=== PATIENT | female | born 1960 | race Caucasian/White ===

== ENCOUNTER 2018-08-09 06:09 | Outpatient (CLI) | payer BC ==
[2018-08-09] VITALS (12 sets, daily range): BP systolic 106–135; BP diastolic 53–80
[~2018-08-09] VITALS: Ht 165.1 cm; Wt 90.3 kg
[2018-08-09 06:59] LABS: HEMOGLOBIN 15.3 g/dL (12.0-15.5); RED BLOOD COUNT 4.98 x10^6/uL (3.50-5.40); RED CELL DISTRIBUTION WIDTH 12.6 % (11.5-14.5); WHITE BLOOD COUNT 8.3 x10^3/uL (4.0-11.0)
[2018-08-09 07:08] LABS: PROTHROMBIN TIME PATIENT 12.7 SEC (11.7-14.0)
[2018-08-09] MEDS ORDERED: LIDOCAINE 1% PF 2 ML VIAL. ONE (07:09)
[2018-08-09] MEDS ORDERED: IODIXANOL 320 MG/ML 100 ML VIAL. ONE (07:09)
[2018-08-09] MEDS ORDERED: SPIR50TA4 PO (07:19)
[2018-08-09] MEDS ORDERED: ASPI-630 PO (07:19)
[2018-08-09 07:35] LABS: GFR 56.6; POTASSIUM 4.2 mmol/L (3.5-5.1)
[2018-08-09 07:40] LABS: ALBUMIN 4.1 g/dL (3.4-5.0); TOTAL BILIRUBIN 0.5 mg/dL (0.2-1.0); TOTAL PROTEIN 8.1 g/dL (6.4-8.2)
[2018-08-09 07:42] LABS: CHOLESTEROL/HDL RATIO 4.9
[2018-08-09] MEDS ORDERED: VERAPAMIL 5 MG/2 ML VIAL. ONE (07:44)
[2018-08-09] MEDS ORDERED: HEPARIN for IV BOLUS 10,000 UNIT/10 ML VIAL. ONE (07:44)
[2018-08-09] MEDS ORDERED: MIDAZOLAM HCL/PF 2 MG/2 ML VIAL. ONE ×2 (07:44→08:37)
[2018-08-09] MEDS ORDERED: fentaNYL PF VIAL 100 MCG/2 ML VIAL ONE ×2 (07:44→08:37)
[2018-08-09] MEDS ORDERED: NITROGLYCERIN 200 MCG/2 ML SYRINGE FOR CATH/VASC LAB. ONE ×3 (07:45→09:16)
--- NOTE | 2018-08-09 08:10 | PDOC ---
MODERATE SEDATION ASSESSMENT RISKS/ALTERNATIVES Risks/Alternatives Risks and alternatives of this type of sedation and procedure discussed with: RISK/ALTERNATIVES: Patient H & P ON CHART H & P H & P on chart and reviewed for co-morbid conditions and appropriate labs. H&P ON CHART: Yes STATUS PREG STATUS ASSESSED: N/A MEDS/ALLERGIES REVIEWED Meds/Allergies Reviewed Medications and Allergies including time and route of recently administered narcotics and sedatives. MEDS/ALLERGIES REVIEWED: Yes ASA RATING ASA RATING: III AIRWAY ASSESSMENT Airway Assessment Airway patency, oral function limitations, presence of caps, crowns, dentures, partials, and ability to extend neck assessed. AIRWAY ASSESSMENT: Yes MALLAMPATI SCORE MALLAMPATI SCORE: II PRE-SEDATION ASSESSMENT PRE-SEDATION ASSESSMENT: Yes LEXIE BARAKAT MD Aug 09, 2018 08:10
[2018-08-09] MEDS ORDERED: LIDOCAINE 1% Multi-Dose 20 ML VIAL. ONE (08:38)
[2018-08-09] MEDS ORDERED: LIDOCAINE 1% Multi-Dose 20 ML VIAL. INJ ONE (08:45)
[2018-08-09] MEDS ORDERED: IODIXANOL 320 MG/ML 100 ML VIAL. IART ONE (08:45)
[2018-08-09] MEDS ORDERED: fentaNYL PF VIAL 100 MCG/2 ML VIAL IV ONE (08:45)
[2018-08-09] MEDS ORDERED: HEPARIN for IV BOLUS 10,000 UNIT/10 ML VIAL. IV ONE (08:45)
[2018-08-09] MEDS ORDERED: HEPARIN for IV BOLUS 10,000 UNIT/10 ML VIAL. IART ONE (08:45)
[2018-08-09] MEDS ORDERED: MIDAZOLAM HCL/PF 2 MG/2 ML VIAL. IV ONE (08:45)
[2018-08-09] MEDS ORDERED: NITROGLYCERIN 200 MCG/2 ML SYRINGE FOR CATH/VASC LAB. IART ONE ×2 (08:45)
[2018-08-09] MEDS ORDERED: VERAPAMIL 5 MG/2 ML VIAL. IART ONE (08:45)
[2018-08-09] MEDS ORDERED: LIDOCAINE 1% PF 2 ML VIAL. INJ ONE (08:45)
[2018-08-09] MEDS ORDERED: CONTRAST GIVEN. MC PRN (09:00)
[2018-08-09] MEDS ORDERED: NITROGLYCERIN SUBLINGUAL 0.4 MG BOTTLE OF 25. SL PRN (09:30)
[2018-08-09] MEDS ORDERED: 0.9 % SODIUM CHLORIDE 10 ML DISP.SYRIN. IV PRN (09:30)
--- NOTE | 2018-08-09 09:47 | CARD ---
MR#: [id number] Date of Study: 08/09/2018 Ordering Physician: LEXIE TONY, Referring Physician: LEXIE TONY, Tech: RT Juarez (R) APPROVED REPORT Technologist: RT Juarez (R) Nurse: Zaira Zendejas R.N. Procedure(s) performed: Moderate sedation: 62 MINUTES CSHA score: 3 HISTORY The patient is a 58 year-old female with a history of : family history of premature CAD. INDICATION The indication(s) include : unstable angina . CASE TECHNIQUE During this case, Fluoroscopy and low osmolar contrast were used for imaging. PROCEDURE NARRATIVE INFORMED CONSENT: After explaining the risks and benefits of the procedure and alternatives, informed consent was obtained. The patient was brought electively to the cardiac catheterization lab. A timeout was performed confi rming the patient's name, date of , procedure, and site of procedure. All necessary personnel w ere wearing the appropriate protective equipment and radiation monitor devices. (See nursing notes for medications administered). ACCESS: The right wrist was sterilely prepped and draped in the usual fashion. The right wrist was infiltrat ed with 1 mL of 2% lidocaine for subcutaneous anesthesia. A 6 [place] Terumo glide sheath was inserte d into the right radial artery without difficulty. Due to radial spasm, a 6Fr EBU 3.0 guide catheter would not advance past the elbow despite multiple doses of sublingual NTG and balloon assisted tracki ng method. Therefore, right radial access was deferred for right groin access. Under 1% lidocaine loc al anesthesia a 6Fr introducer was placed in the RCFA without difficulty via the modified seldinger t echnique. CORONARY ANGIOGRAPHY: Right and left coronary angiography was performed using a 6Fr TIG 4.0 catheter. Left ventricular en d diastolic pressure was obtained with a pigtail catheter and pullback was performed after left ventr iculography. All catheter exchanges and advancements were performed over a guidewire. FINDINGS: HEMODYNAMICS: LVEDP 15 mm Hg No gradient on LV to aortic pullback. AO: 120/80 LEFT VENTRICULOGRAM: EF 55% Anterobasal: Normal. Anterolateral: Normal Apical: Normal Diaphragmatic: Normal Posterobasal: Normal CORONARY ANGIOGRAPHY: LM is a large caliber vessel with normal angiographic appearance. LAD is a moderate caliber vessel with a proximal to mid 40-50% stenosis at the site of the 2nd diagon al. D1 is a small caliber vessel with normal angiographic appearance. LCx is a moderate caliber non-dominant vessel with normal angiographic appearance. OM1 is a moderate caliber vessel with normal angiographic appearance. RCA is a moderate caliber dominant vessel with mild luminal irregularities. RPDA and RPL are small caliber vessels with mild luminal irregularities. INTERVENTIONAL TECHNIQUE: Through a 6Fr EBU 3.0 guide catheter, a 0.014'' pressure wire was advanced to the distal LAD after ap propriate normalization. Intracoronary NTG was administered prior to iFR measurement. The iFR was ursula sured at 0.92. Due to negative iFR, further interevention was deferred. CLOSURE: At case completion the right radial sheath was removed and a Terumo radial band was applied with 13 m l of air. The right groin sheath was removed and hemostasis was achieved with an Angioseal device. COMPLICATIONS: The patient tolerated the procedure well and there were no immediate complications. The left main trifurcates to the left anterior descending, circumflex, and ramus. Conclusion 1. Normal LVEDP 2. Normal LV systolic function. EF 55% 3. One vessel CAD involving the LAD with normal iFR. Recommendations Continue ASA 81mg daily Start Atorvastatin 40mg daily for LDL of 156, goal LDL of less than 70. Start Metoprolol 25mg bid Consider Ranexa therapy if no symptomatic improvement. Signed by : Lexie Tony, Electronically Approved : 08/09/2018 09:45:16
[2018-08-09] MEDS ORDERED: RANO500T2 PO (11:14)
[2018-08-09] MEDS ORDERED: ATOR40TA59 PO (11:14)
--- NOTE | 2018-08-09 13:19 | NUR ---
Discharge Note: VASYL RYAN Discharge instructions and discharge home medications reviewed with Patient and a copy given. All questions have been answered and understanding verbalized. The following instructions and handouts were given: moderate sedation,groin site,and radial site care Discontinued lines and drains: Peripheral IV intact. Patient discharged to Home or Self Care withFamily Membervia Wheelchair Prescriptions for Atorvastatin,Ranexa, and outpatient labs given to patient.
== END 2018-08-09 13:37 | disposition home or self-care (01) ==
LOC: CCL 06:09
PROVIDERS: ATTEND Internal Medicine Cardiovascular Disease
DX: I25.110 Atherosclerotic heart disease of native coronary artery with unstable angina pectoris (principal); Z82.49 Family history of ischemic heart disease and other diseases of the circulatory system; Z79.899 Other long term (current) drug therapy; Z79.82 Long term (current) use of aspirin
CPT/HCPCS: 36415; 80053; 80061; 83721; 84443; 85027; 85610; 93458; 93571; 99152; 99153; C1725; C1769; C1887; C1892; J1644; J2250; J3010; J3490; Q9967; C1760; G0269; C1771